=== PATIENT | female | born 1985 | race American Indian/Alaskan Native ===

== ENCOUNTER 2019-08-09 16:46 | Inpatient (IN) | payer MEDICAID ==
[2019-08-09 18:14] LABS: Bacteria,Urine 1+ /HPF (Negative); Bilirubin,Urine NEG (Negative); Blood,Urine SM (Negative); Color,Urine Yellow (Yellow); Mucus,Urine FEW /HPF; Urobilinogen,Urine < 2.0 mg/dL (<2.0)
[2019-08-09] MEDS ORDERED: ONDANSETRON 4 MG/2 ML INJ IV ONE (21:42)
[2019-08-09] MEDS ORDERED: MORPHINE 4 MG/1 ML INJ IV ONE (21:42)
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
[2019-08-09] MEDS ORDERED: fentaNYL 100 MCG/2 ML INJ IV ONE (23:11)
[2019-08-09] MEDS ORDERED: fentaNYL 100 MCG/2 ML INJ ONE (23:16)
--- NOTE | 2019-08-09 23:26 | Ultrasound Report ---
ULTRASOUND ABDOMEN, LIMITED (RIGHT UPPER QUADRANT) INDICATION: right upper quadrant pain and tenderness. COMPARISON: None available. FINDINGS: Pancreas: Visualized portion shows no significant abnormality. Liver: Normal. Gallbladder: Gallbladder wall is thickened at 6 mm. Multiple gallstones are seen. There may be mild gallbladder wall edema as well. Bile ducts: Normal. Common Bile Duct measures 1.2 mm. Free fluid: None. Additional Findings: None. IMPRESSION: 1. Cholelithiasis with possible cholecystitis. Signer Name: Dago Cevallos MD Signed: 08/09/2019 11:22 PM Workstation Name: [id number]
[2019-08-09 23:49] LABS: Basophils % (Auto) 0.3 % (0.0-1.8); Eosinophils # (Auto) 0.1 K/mm3 (0.0-0.4); Eosinophils % (Auto) 1.6 % (0.0-4.3); Hematocrit 41.8 % (30.3-42.9); Hemoglobin 14.5 gm/dl (10.1-14.3); Lymphocytes # (Auto) 1.1 K/mm3 (1.2-5.4); Lymphocytes % (Auto) 11.6 % (13.4-35.0); Mean Corpuscular HGB Conc 35 % (30-34); Mean Corpuscular Volume 95 fl (79-97); Monocytes # (Auto) 0.7 K/mm3 (0.0-0.8); Monocytes % (Auto) 7.6 % (0.0-7.3); Platelet Count 178 K/mm3 (140-440); Red Blood Count 4.42 M/mm3 (3.65-5.03); Red Cell Distribution Width 12.8 % (13.2-15.2)
[2019-08-10] MEDS ORDERED: PIPERACILLIN/TAZOBACTAM 3.375 3.375 GM/50 ML BAG IV ONE (00:06)
[2019-08-10] MEDS ORDERED: SODIUM CHLORIDE 0.9% 1000 ML 1,000 ML IV ONE (00:06)
[2019-08-10 00:58] LABS: Alanine Aminotransferase 46 units/L (7-56); Albumin 4.2 g/dL (3.9-5); BUN/Creatinine Ratio 7; Blood Urea Nitrogen 4 mg/dL (7-17); Hemolysis Index 13
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
[2019-08-10] MEDS: MORPHINE 2 MG/1 ML INJ IV PRN ×2 (02:23→06:02)
[2019-08-10] MEDS: ACETAMINOPHEN 325 MG TAB PO PRN ×2 (04:10→08:49)
[2019-08-10 08:13] LABS: Bilirubin,Direct 0.8 mg/dL (0-0.2)
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
[2019-08-10] MEDS: KETOROLAC 30 MG/1 ML INJ IV SCH ×2 (09:56→18:37)
[2019-08-10] MEDS: PANTOPRAZOLE 40 MG INJ IV SCH ×2 (09:56→21:58)
[2019-08-10] MEDS: SODIUM CHLORIDE 0.9% 1000 ML 2,000 ML IV ONE ×2 (10:00→10:01)
[2019-08-10 11:02] LABS: Bacteria,Urine 1+ /HPF (Negative); Bilirubin,Urine NEG (Negative); Blood,Urine MOD (Negative); Color,Urine Amber (Yellow); Mucus,Urine FEW /HPF; Urobilinogen,Urine < 2.0 mg/dL (<2.0)
[2019-08-10] MEDS: SODIUM CHLORIDE 0.9% 1000 ML 1,000 ML IV SCH (16:47)
[2019-08-10] MEDS: HYDROcodone/ACETAMINOPHEN 5-325 MG TAB PO PRN (21:58)
[2019-08-10] MEDS ORDERED: ENOXAPARIN 40 MG/0.4 ML INJ SUB-Q SCH (22:00)
[2019-08-11] MEDS: SODIUM CHLORIDE 0.9% 1000 ML 1,000 ML IV SCH (00:36)
[2019-08-11] MEDS: KETOROLAC 30 MG/1 ML INJ IV SCH ×5 (00:36→22:53)
[2019-08-11] MEDS: HYDROcodone/ACETAMINOPHEN 5-325 MG TAB PO PRN ×2 (03:09→10:55)
[2019-08-11 07:39] LABS: Hematocrit 32.1 % (30.3-42.9); Hemoglobin 11.3 gm/dl (10.1-14.3); Mean Corpuscular HGB Conc 35 % (30-34); Mean Corpuscular Volume 94 fl (79-97); Platelet Count 158 K/mm3 (140-440); Red Cell Distribution Width 12.6 % (13.2-15.2)
[2019-08-11 08:01] LABS: Alanine Aminotransferase 93 units/L (7-56); Albumin 3.3 g/dL (3.9-5); BUN/Creatinine Ratio 3; Blood Urea Nitrogen 2 mg/dL (7-17); Calcium 7.7 mg/dL (8.4-10.2); Hemolysis Index 3
--- NOTE | 2019-08-11 08:44 | Progress Note ---
Assessment and Plan - Patient Problems (1) Cholecystitis Current Visit: Yes Status: Acute Plan to address problem: Pt stable. T.bili normal today. Plan for surgery tomorrow. Consent obtained yesterday. Procedure, risks, benefits discussed. All questions answered. Change to maintenance IVF. Please call with questions. Time=10min Subjective Date of service: 08/11/19 Patient Reports: Positive: pain is less, tolerating liquids well. Negative: nausea, vomiting Objective Vital Signs - 12hr 08/10/19 08/11/19 22:34 05:19 Temperature 98.4 F 98.4 F Pulse Rate 86 81 Respiratory 18 19 Rate Blood Pressure 117/60 95/34 O2 Sat by Pulse 99 96 Oximetry - General physical appearance no distress, no pain, obese, other (looks well) - Respiratory normal expansion, normal respiratory effort - Abdomen soft, not distended - Integumentary no rash, no growths, no abnormal pigmentation - Psychiatric oriented to time, oriented to person, oriented to place, speech is normal, memory intact - Labs 08/11/19 07:17 08/11/19 07:17 Diabetes panel 08/11/19 Range/Units 07:17 Sodium 139 (137-145) mmol/L Potassium 3.6 (3.6-5.0) mmol/L Chloride 106.0 (98-107) mmol/L Carbon Dioxide 19 L (22-30) mmol/L BUN 2 L (7-17) mg/dL Creatinine 0.6 L (0.7-1.2) mg/dL Glucose 107 H (65-100) mg/dL Calcium 7.7 L (8.4-10.2) mg/dL AST 65 H (5-40) units/L ALT 93 H (7-56) units/L Alkaline Phosphatase 115 (35-129) units/L Total Protein 6.1 L (6.3-8.2) g/dL Albumin 3.3 L (3.9-5) g/dL Calcium panel 08/11/19 Range/Units 07:17 Calcium 7.7 L (8.4-10.2) mg/dL Albumin 3.3 L (3.9-5) g/dL Pituitary panel 08/11/19 Range/Units 07:17 Sodium 139 (137-145) mmol/L Potassium 3.6 (3.6-5.0) mmol/L Chloride 106.0 (98-107) mmol/L Carbon Dioxide 19 L (22-30) mmol/L BUN 2 L (7-17) mg/dL Creatinine 0.6 L (0.7-1.2) mg/dL Glucose 107 H (65-100) mg/dL Calcium 7.7 L (8.4-10.2) mg/dL Adrenal panel 08/11/19 Range/Units 07:17 Sodium 139 (137-145) mmol/L Potassium 3.6 (3.6-5.0) mmol/L Chloride 106.0 (98-107) mmol/L Carbon Dioxide 19 L (22-30) mmol/L BUN 2 L (7-17) mg/dL Creatinine 0.6 L (0.7-1.2) mg/dL Glucose 107 H (65-100) mg/dL Calcium 7.7 L (8.4-10.2) mg/dL Total Bilirubin 1.00 (0.1-1.2) mg/dL AST 65 H (5-40) units/L ALT 93 H (7-56) units/L Alkaline Phosphatase 115 (35-129) units/L Total Protein 6.1 L (6.3-8.2) g/dL Albumin 3.3 L (3.9-5) g/dL
[2019-08-11] MEDS ORDERED: ceFAZolin/Water 2 GM/20 ML 2 GM/20 ML SYRINGE IV NR (09:00)
--- NOTE | 2019-08-11 10:27 | Gastroenterology Progress Note ---
Assessment and Plan 1.RUQ abd pain 2.nausea 3.acute cholecystitis 4.possible CBD stone? -afebrile -WBC WNL -lipase WNL -LFTs- T.rosi trended down to WNL today (1.00), AST 65, ALT 93, alk phos 115 -abd U/S showed gallstones with possible cholecystitis but no biliary ductal dilatation (CBD WNL)- doubt choledocholithiasis -surgery following- agree with proceeding with cholecystectomy with IOC (scheduled for tomorrow) -no plan for ERCP at this time, unless IOC positive -continue antibiotics -continue to trend labs and supportive care Subjective Date of service: 08/11/19 Principal diagnosis: possible CBD stone Interval history: No acute distress or new GI complaints. Objective - Constitutional Vitals: Temp Pulse Resp BP Pulse Ox 98.4 F 81 19 95/34 96 08/11/19 05:19 08/11/19 05:19 08/11/19 05:19 08/11/19 05:19 08/11/19 05:19 General appearance: no acute distress, other (hearing impaired) - EENT Eyes: PERRL, EOM intact ENT: hearing intact - Respiratory Respiratory effort: normal - Cardiovascular Rhythm: regular - Gastrointestinal General gastrointestinal: Present: soft, tender (RUQ), non-distended, normal bowel sounds - Neurologic Neurological: alert and oriented x3 - Labs CBC & Chem 7: 08/11/19 07:17 08/11/19 07:17 Labs: Laboratory Results - last 24 hr 08/10/19 08/11/19 08/11/19 10:35 07:17 07:17 WBC 3.8 L RBC 3.40 L Hgb 11.3 D Hct 32.1 D MCV 94 MCH 33 H MCHC 35 H RDW 12.6 L Plt Count 158 Sodium 139 Potassium 3.6 Chloride 106.0 Carbon Dioxide 19 L Anion Gap 18 BUN 2 L Creatinine 0.6 L Estimated GFR > 60 BUN/Creatinine Ratio 3 Glucose 107 H Calcium 7.7 L Total Bilirubin 1.00 AST 65 H ALT 93 H Alkaline Phosphatase 115 Total Protein 6.1 L Albumin 3.3 L Albumin/Globulin Ratio 1.2 Urine Color [place] Urine Turbidity Slightly-cloudy Urine pH 5.0 Ur Specific [place] 1.024 Urine Protein 30 mg/dl Urine Glucose (UA) Neg Urine Ketones 80 Urine Blood Mod Urine Nitrite Neg Urine Bilirubin Neg Urine Urobilinogen < 2.0 Ur Leukocyte Esterase Lg Urine WBC (Auto) 12.0 H Urine RBC (Auto) 21.0 U Epithel Cells (Auto) 13.0 Urine Bacteria (Auto) 1+ Urine Mucus Few
[2019-08-11] MEDS: PANTOPRAZOLE 40 MG INJ IV SCH ×2 (10:56→21:12)
[2019-08-11] MEDS: D5W/0.45% NACL/KCL 20 MEQ 20 MEQ/1,000 ML BAG IV SCH (11:09)
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
[2019-08-12] MEDS: KETOROLAC 30 MG/1 ML INJ IV SCH ×2 (00:51→06:22)
[2019-08-12] MEDS: HYDROmorphone 1 MG/1 ML INJ IV PRN ×3 (04:09→22:08)
[2019-08-12] MEDS: D5W/0.45% NACL/KCL 20 MEQ 20 MEQ/1,000 ML BAG IV SCH (05:02)
[2019-08-12 06:26] LABS: Albumin 3.7 g/dL (3.9-5); Bilirubin,Direct 0.3 mg/dL (0-0.2)
[2019-08-12] MEDS: PANTOPRAZOLE 40 MG INJ IV SCH ×2 (10:14→22:09)
--- NOTE | 2019-08-12 14:23 | Event Note ---
Date: 08/12/19 Patient pending cholecystectomy with IOC today. No plan for ERCP, unless IOC positive. Further management per surgery.
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
[2019-08-12] MEDS ORDERED: LACTATED RINGERS 1,000 ML IV SCH (15:00)
[2019-08-12] MEDS ORDERED: ceFAZolin/STERILE WATER 2 GM/20 ML SYRINGE IV NR (15:08)
[2019-08-12] MEDS ORDERED: LIDOCAINE (1%) 10 MG/1 ML VIAL 20 ML MDV ONE (15:09)
[2019-08-12] MEDS ORDERED: BUPIVACAINE-EPINEPHRINE/PF 0.5%-1:200,000 (30 ML) VIAL INFILTRATI ONE ×2 (15:09→16:23)
--- NOTE | 2019-08-12 15:09 | Anesthesia Consultation ---
Anesthesia Consult and Med Hx Date of service: 08/12/19 - Airway Anesthetic Teeth Evaluation: Poor ROM Head & Neck: Adequate Mental/Hyoid Distance: Adequate Mallampati Class: Class II Intubation Access Assessment: Good - Pulmonary Exam CTA: Yes - Cardiac Exam Cardiac Exam: RRR - Pre-Operative Health Status ASA Pre-Surgery Classification: ASA3 Proposed Anesthetic Plan: General (Obesity , GERD, Hearing impairment) - Pulmonary Hx Asthma: No COPD: No Hx Pneumonia: No - Central Nervous System Hx Psychiatric Problems: No - Endocrine Hx End Stage Renal Disease: No
--- NOTE | 2019-08-12 15:10 | Anesthesia Day of Surgery ---
Anesthesia Day of Surgery - Day of Surgery Patient Examined: Yes Patient H&P Reviewed: Yes Patient is NPO: Yes
[2019-08-12] MEDS ORDERED: NEOSTIGMINE 10MG/10 ML INJ MDV ONE (15:51)
[2019-08-12] MEDS ORDERED: PROPOFOL 200 MG/20 ML VIAL IV ONE (15:51)
[2019-08-12] MEDS ORDERED: PHENYLEPHRINE/NS 1,000 MCG/10 ML SYRINGE (OR USE) IV ONE (15:51)
[2019-08-12] MEDS ORDERED: dexAMETHasone 20 MG/5 ML VIAL ONE (15:51)
[2019-08-12] MEDS ORDERED: ROCURONIUM 50 MG/5 ML INJ IV ONE (15:51)
[2019-08-12] MEDS ORDERED: GLYCOPYRROLATE 0.4 MG/2 ML INJ ONE (15:51)
[2019-08-12] MEDS ORDERED: fentaNYL 250 MCG/5 ML INJ ONE (15:51)
[2019-08-12] MEDS ORDERED: LIDOCAINE MPF (2%) 20 MG/1 ML VIAL 5 ML ONE (15:51)
[2019-08-12] MEDS ORDERED: ONDANSETRON 4 MG/2 ML INJ ONE (15:51)
[2019-08-12] MEDS ORDERED: MIDAZOLAM 2 MG/2 ML INJ IV NR (16:00)
[2019-08-12] MEDS ORDERED: fentaNYL 100 MCG/2 ML INJ IV ONE (16:00)
[2019-08-12] MEDS ORDERED: LIDOCAINE (1%) 10 MG/1 ML VIAL 20 ML MDV INFILTRATI ONE (16:22)
[2019-08-12] MEDS ORDERED: fentaNYL 100 MCG/2 ML INJ ONE ×2 (16:58→18:23)
[2019-08-12] MEDS ORDERED: SODIUM CHLORIDE 0.9% IRRIG SOLN 2000 ML IR ONE (17:40)
--- NOTE | 2019-08-12 19:00 | Post Operative Note ---
Date of procedure: 08/12/19 (dictation:[id number]) Pre-op diagnosis: acute cholecystitis Post-op diagnosis: same Findings: very inflamed and thickened GB. mild adhesions to surrounding tissue Procedure: robotic assisted lap kristie IVF 1500cc EBL ~75cc Anesthesia: GETA Surgeon: BRITTA LOCKE Household Appliance Assembler: TIFFANIE CONNORS Estimated blood loss: 50-100ml Pathology: list (gallbladder) Specimen disposition: to lab Condition: stable Disposition: PACU
[2019-08-12] MEDS ORDERED: WATER FOR IRRIG STERILE 1,500 ML BOTTLE IR ONE (19:28)
[2019-08-12] MEDS: ONDANSETRON 4 MG/2 ML INJ IV PRN (22:09)
--- NOTE | 2019-08-13 01:06 | Operative Report ---
PREOPERATIVE DIAGNOSIS: Acute cholecystitis. POSTOPERATIVE DIAGNOSIS: Acute cholecystitis. PROCEDURE: Robotic-assisted laparoscopic cholecystectomy. ATTENDING PHYSICIAN: Ximena Daley MD ENGINE OILER: Dr. Skinner. ANESTHESIA: General. ESTIMATED BLOOD LOSS: Approximately, 75 mL. FLUIDS: 1500 mL. URINE OUTPUT: 450 mL. FINDINGS: Markedly inflamed, edematous and thickened gallbladder with a large stone. Mild adhesions were noted around the inferior half of the gallbladder. SPECIMENS: Gallbladder. DRAINS: 10-Irish round fully fluted drain. COMPLICATIONS: None. DISPOSITION: Stable, transferred to Recovery Room. INDICATIONS: This is a 34-year-old female who presented with approximately 3-day history of severe right upper quadrant pain. Ultrasound examination showed a thickened gallbladder. The patient was assessed to have acute cholecystitis. The patient was admitted for resuscitation and IV antibiotics and assessed the need for eventual cholecystectomy. Total bilirubin, which had been mildly elevated, now the results were normal prior to surgery. Procedure, risks, benefits were explained to the patient. Risks include but were not limited to infection, bleeding, pain, injury to surrounding structures, possible need for open surgery, possible need for further procedures in the future. The patient understood and consented. OPERATIVE NOTE: The patient was brought to the operating room and placed on the table in supine position. After adequate general anesthesia was established, the patient was prepped and draped in the usual sterile fashion. Antibiotics have been administered prior to start of the case. SCDs were in place. Time-out was called. I began by placing a Veress needle in the left upper quadrant and insufflated on the first attempt. I then replaced this with a 5-mm port using the Optiview technique for entry. There was no injury to the underlying structures. We then proceeded under direct vision to place a 12-mm port at the umbilicus. Two more 8-mm ports on the right side of the abdomen and then we replaced the 5-mm port with an 8. The falciform ligament was in the way of the camera. Therefore, this was divided with the bipolar device primarily. We tried to minimize the use of electrocautery due to the patient's known cochlear implant. I had researched the latest guidelines on this. Per my findings, good quality data was limited; however, recent study had been done which showed no effect on the cochlear implants from the use of electrocautery during the surgery. However, as a precaution, we made a plan to minimize the use and to keep a very low setting, instead of our usual 30, we kept it at 15. Once the falciform ligament was divided and it was hemostatic of note, we then proceeded to the gallbladder, was found to be distended, very thickened and difficult to grab. We began by aspirating the bile. There was no odor to it. It appeared brownish and slightly thickened. The gallbladder still remained difficult to grab. Therefore, a 2-0 silk suture was inserted into the abdomen along with a Ray-Megan for eventual suture placement into the gallbladder to be used for retraction. At this point, we then docked the robot. I proceeded to the console. I began by placing the 2-0 silk stitch near the dome of the gallbladder. A [id number] stitch was placed, so that I may grab the suture and use it for retraction purposes; it worked very well. I elevated it slightly anteriorly and began taking down the adhesions to the omentum. As we took down adhesions, I pushed the gallbladder more over the liver edge until we got down to the neck of the gallbladder. As mentioned, the gallbladder was markedly inflamed and edematous. We took down the surrounding tissue and the adjacent structures to dissect out the gallbladder. I was able to get behind the neck of the gallbladder. We made a very large critical view. I identified the cystic artery, which was quite large, but it could be seen going directly into the gallbladder, so not a right hepatic branch. The cystic artery was dissected out, clips were placed on either side and then sharply divided. I continued on with the dissection to dissect out the triangle of [place]ot. As mentioned, the tissues were markedly thickened. Dissection was difficult; however, it was typical for a bad acute cholecystitis type picture. As a precaution, I transitioned from dissecting out the triangle of Calot to doing a dome down approach to try to give us the largest critical view possible to minimize any missed interpretation of structures and possible injury to the common duct. The tissues again were markedly inflamed. At one point in the mid body, the gallbladder was densely adhered to the bed, so I left this for later. We did as much as we could. Both Dr. Skinner and I took a very close look. I had the gallbladder dissected up approximately one-third of the way up the bed; therefore, this gave us a very large critical view of the area. There were no other ductal structures and the structure that we had identified as the neck going in the cystic duct was clearly going into the gallbladder. I tried to clean out this area more because it was quite thickened and I wanted to make sure we did not have too much tissue in order for the clips to remain secure. In cleaning off the area, I did make a small hole in the neck of the gallbladder; however, we still had a fair amount of distance distal to that area. Therefore, I decided at this point rather than continue to try to dissect it out and then make the hole larger and ultimately be unable to control it, I thought I would stop at this point. This, we had enough dissected out that we could easily get a stapler across this area and secure it without fear that there would be too much tissue and a regular clip would not be able to remain secure. I did as much of the dissection in the gallbladder bed, as I could robotically as the dissection was difficult. I felt that I should do as much robotically as possible as my view was excellent and the ability to dissect was better. I did as much as I could and then eventually returned back to laparoscopic approach. I irrigated and suctioned out the area thoroughly. We confirmed our area of a small leak. I was able to place a 45-mm stapler with a blue load across the neck of the gallbladder and I got just underneath the area of the leak. The stapler was closed. We checked the area thoroughly. I made sure by compressing both sides around the staple to make sure there was nothing leaking as previously. Earlier, when we put pressure in that area, a large amount of bile would leak out. We had no leak at this point; therefore, I felt comfortable that we had clearly obtained control. After about 10-15 seconds, we then fired the stapler to allow the closed stapler to push out any excess edema. We had a hemostatic staple line. There was absolutely no bile leaking out. Everything looked very good. We felt very comfortable with the final results. I then continued on to try to dissect the gallbladder off the bed. As mentioned previously, the middle portion was densely adherent. I had to use a Harmonic stapler in order to divide those adhesions. They were so dense. As mentioned previously, I wanted to minimize electrocautery due to anecdotal concerns that there could be an effect on the cochlear implant. We got the gallbladder safely off the gallbladder bed, it was completely hemostatic. It was left on the side. We examined the gallbladder bed very carefully and then where we had the staple line and the clip for the artery. Everything was hemostatic. There was no bile leaking. We thoroughly irrigated out, suctioned out the area. We then proceeded with the specimen in the EndoCatch bag. It was left on the side. I removed the Ray-Megan we had put in the start of the case. Our counts were correct at this point. We then removed the EndoCatch bag from the umbilical port site. I had to extend the fascia slightly and the skin in order to get this large specimen and large stone out. We examined the gallbladder on the back table at the end of the case. We clearly had gotten the neck of the gallbladder. There were no other ductal structures. The patient had a very large stone stuck in the neck. Everything was as we had expected. There were no unexpected findings. The abdomen was desufflated. Additional local was injected into the ports. Using an open technique, we closed the fascia at the umbilical port site with a [id number]-pguov 0 Vicryl stitch. We had a very nice closure. As mentioned, additional local was injected. Skin sites were closed with 4-0 Monocryl subcuticular stitches. Skin was cleaned and dried. Dermabond was placed. The patient tolerated the procedure well. There were no complications. All counts were correct at the end of the case. There was no family waiting for me to talk to. JOB# [id number] MU/JAQUELIN SERNA
[2019-08-13] MEDS: HYDROmorphone 1 MG/1 ML INJ IV PRN ×3 (02:17→09:12)
[2019-08-13] MEDS: HYDROcodone/ACETAMINOPHEN 5-325 MG TAB PO PRN ×2 (03:05→13:01)
[2019-08-13] MEDS: ONDANSETRON 4 MG/2 ML INJ IV PRN (05:52)
[2019-08-13] MEDS: D5W/0.45% NACL/KCL 20 MEQ 20 MEQ/1,000 ML BAG IV SCH (06:40)
--- NOTE | 2019-08-13 08:12 | Progress Note ---
Assessment and Plan - Patient Problems (1) Cholecystitis Current Visit: Yes Status: Acute Plan to address problem: Pt stable. s/p robotic cholecystectomy - 08/12 - POD#1. Plan: 1) f/u on LFTs 2) regular diet this AM. 3) Ambulate 4) d/c IVF 5) home today if doing well with above. Will most likely remove drain prior to d/c if output remains low and LFTs ok. 6) No Abx needed for home 7) f/u in 2 weeks. Please call with questions. Subjective Date of service: 08/13/19 Patient Reports: Positive: tolerating liquids well, other (had gas pains last night). Negative: nausea, vomiting Objective Vital Signs - 12hr 08/12/19 08/12/19 08/13/19 20:50 20:51 00:01 Temperature 97.3 F L 97.5 F L Pulse Rate 82 74 78 Respiratory 18 18 Rate Blood Pressure 79/41 124/42 O2 Sat by Pulse 95 97 95 Oximetry 08/13/19 06:16 Temperature 98.0 F Pulse Rate 60 Respiratory 20 Rate Blood Pressure 128/62 O2 Sat by Pulse 98 Oximetry - General physical appearance no distress, no pain, other (looks well) - Respiratory normal expansion, normal respiratory effort - Abdomen soft, not distended, other (small amount of sanguineous drainage in WILLIAM drain) - Integumentary no rash, no growths, no abnormal pigmentation - Psychiatric oriented to time, oriented to person, oriented to place, speech is normal, memory intact - Labs 08/11/19 07:17 08/11/19 07:17
[2019-08-13] MEDS: PANTOPRAZOLE 40 MG INJ IV SCH (10:25)
[2019-08-13 11:33] LABS: Albumin 3.9 g/dL (3.9-5); Bilirubin,Direct 0.2 mg/dL (0-0.2)
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
[2019-08-13 15:45] VITALS: BP 108/51
[2019-08-13] MEDS ORDERED: PANTOPRAZOLE 40 MG TAB PO SCH (22:00)
== END 2019-08-13 16:30 | disposition home or self-care (01) | DRG 418 ==
LOC: ED 16:46 → EDBD 08-10 00:48 → 3A 08-10 00:48
PROVIDERS: ADMIT Internal Medicine; ATTEND Internal Medicine
PROC: 0FT44ZZ Resection of Gallbladder, Percutaneous Endoscopic Approach (ICD-10-PCS; principal; 2019-08-12)
PROC: 8E0W4CZ Robotic Assisted Procedure of Trunk Region, Percutaneous Endoscopic Approach (ICD-10-PCS; 2019-08-12)
PROC: 0FN44ZZ Release Gallbladder, Percutaneous Endoscopic Approach (ICD-10-PCS; 2019-08-12)
DX: K80.00 Calculus of gallbladder with acute cholecystitis without obstruction (principal); N39.0 Urinary tract infection, site not specified; Z68.41 Body mass index [BMI] 40.0-44.9, adult; K66.0 Peritoneal adhesions (postprocedural) (postinfection); K21.9 Gastro-esophageal reflux disease without esophagitis; F17.200 Nicotine dependence, unspecified, uncomplicated; E66.9 Obesity, unspecified; Z82.49 Family history of ischemic heart disease and other diseases of the circulatory system; Z71.3 Dietary counseling and surveillance; Z83.3 Family history of diabetes mellitus; Z90.710 Acquired absence of both cervix and uterus; Z79.899 Other long term (current) drug therapy
CPT/HCPCS: 36415; 76705; 80053; 80076; 81001; 82150; 83690; 84703; 85025; 85027; 87040; 87086; 88304; G0378; A4217; C9113; J0690; J1100; J1170; J1885; J1956; J2270; J2370; J2405; J2543; J2704; J2710; J3010; J7030; J7120